=== PATIENT | female | born 1995 | race Caucasian/White ===

== ENCOUNTER 2019-09-27 18:53 | Emergency (ER) | payer OTHER ==
[2019-09-27] MEDS ORDERED: SODIUM CHLORIDE 0.9% 1,000 ML IV STA (19:12)
[2019-09-27] MEDS ORDERED: ONDANSETRON 4 MG/2 ML VIAL IVP STA (19:12)
--- NOTE | 2019-09-27 19:25 | ED Physician Documentation ---
PD HPI ABD PAIN - Stated complaint Stated Complaint: N/V, TIMMONS - Chief complaint Chief Complaint: Abd Pain - History obtained from History obtained from: Patient (G1 at 12 weeks gestation and has had persistent problems with cramping and vomiting throughout this . She was prescribed doxylamine Which was quite helpful, but the efficacy waned. Now feeling weak and dizzy. Pain is not severe. No bleeding. No fluid loss.) Review of Systems Ten Systems: 10 systems reviewed and negative Constitutional: reports: Fatigue. denies: Fever, Chills Cardiac: denies: Chest pain / pressure, Palpitations Respiratory: denies: Dyspnea, Cough PD PAST MEDICAL HISTORY - Past Medical History Past Medical History: Yes Endocrine/Autoimmune: Other Other Past Medical History: Hypoglycemia - Past Surgical History Past Surgical History: No - Present Medications Home Medications: Ambulatory Orders Medication Instructions Recorded Confirmed Doxylamine Succinate [Unisom] 25 mg PO Q8HR PRN 09/27/19 09/27/19 Metoclopramide [Reglan] 10 mg PO Q6H PRN #20 tablet 09/27/19 - Allergies Allergies/Adverse Reactions: Allergies Allergy/AdvReac Type Severity Reaction Status Date / Time latex Allergy Unknown Verified 09/27/19 19:06 naproxen Allergy Unknown Verified 09/27/19 19:06 Sulfa (Sulfonamide Allergy Unknown Verified 09/27/19 19:06 Antibiotics) - Social History Does the pt smoke?: No Smoking Status: Never smoker Does the pt drink ETOH?: No Does the pt have substance abuse?: No - Immunizations Immunizations are current?: Yes - POLST Patient has POLST: No PD ED PE NORMAL - Vitals Vital signs reviewed: Yes - General General: Alert and oriented X 3, No acute distress - Abdomen Abdomen: Normal bowel sounds, Soft, Non tender - Female Female : Other (Bedside ultrasound demonstrates single live intrauterine with a heart rate of 158.) - Neuro Neuro: Alert and oriented X 3, Normal speech Results - Vitals Vitals: Vital Signs - 24 hr 09/27/19 09/27/19 09/27/19 19:06 19:53 20:47 Temperature 36.9 C Heart Rate 92 85 84 Respiratory 16 16 18 Rate Blood Pressure 111/58 L 93/60 100/59 L O2 Saturation 99 100 100 Oxygen O2 Source Room air - Labs Labs: Laboratory Tests 09/27/19 09/27/19 19:32 20:10 Sodium 135 Potassium 3.8 Chloride 101 Carbon Dioxide 23 Anion Gap 11.0 BUN 9 Creatinine 0.4 Estimated GFR (MDRD) 198 Glucose 89 Calcium 9.5 Total Bilirubin 0.6 AST 24 ALT 21 Alkaline Phosphatase 59 Total Protein 7.8 Albumin 3.9 Globulin 3.9 Albumin/Globulin Ratio 1.0 Lipase 32 Urine Color YELLOW Urine Clarity CLEAR Urine pH 5.5 Ur Specific [place] >=1.030 H Urine Protein NEGATIVE Urine Glucose (UA) NEGATIVE Urine Ketones >=80 H Urine Occult Blood NEGATIVE Urine Nitrite NEGATIVE Urine Bilirubin NEGATIVE Urine Urobilinogen 0.2 (NORMAL) Ur Leukocyte Esterase NEGATIVE Ur Microscopic Review NOT INDICATED Urine Culture Comments NOT INDICATED PD MEDICAL DECISION MAKING - ED course ED course: 24-year-old G1 with hyperemesis gravidarum. She has ketonuria but her blood work is normal. Passed a p.o. challenge after IV fluids and IV Zofran. Departure - Departure Disposition: 01 Home, Self Care Clinical Impression: Hyperemesis gravidarum Condition: Good Record reviewed to determine appropriate education?: Yes Instructions: ED Preg Morning Sickness Prescriptions: Metoclopramide [Reglan] 10 mg PO Q6H PRN #20 tablet PRN Reason: nausea or headache Comments: Call your doctor to arrange a follow-up appointment, make the next available appointment. In the interim, return anytime if worse or if new symptoms develop.
[2019-09-27 19:51] LABS: ALBUMIN 3.9 g/dL (3.2-5.5); BILIRUBIN,TOTAL 0.6 mg/dL (0.2-1.0); CALCIUM 9.5 mg/dL (8.5-10.3); CREATININE 0.4 mg/dL (0.4-1.0); TOTAL PROTEIN 7.8 g/dL (6.7-8.2)
[2019-09-27 20:17] LABS: BILIRUBIN,URINE NEGATIVE (NEGATIVE); CLARITY,URINE CLEAR (CLEAR); GLUCOSE, URINE (UA) NEGATIVE (NEGATIVE); KETONES,URINE (UA) >=80 mg/dL (NEGATIVE); LEUKOCYTE ESTERASE, URINE NEGATIVE (NEGATIVE); NITRITE,URINE NEGATIVE (NEGATIVE); OCCULT BLOOD,URINE NEGATIVE (NEGATIVE); PH,URINE 5.5 PH (5.0-7.5); PROTEIN,URINE NEGATIVE (NEGATIVE); UROBILINOGEN,URINE 0.2 (NORMAL) E.U./dL (NORMAL)
[2019-09-27 20:48] VITALS: BP 100/59
== END 2019-09-27 21:15 | disposition home or self-care (01) ==
LOC: ED 18:53
DX: O21.0 Mild hyperemesis gravidarum (principal); Z3A.12 12 weeks gestation of pregnancy; R82.4 Acetonuria
CPT/HCPCS: 36415; 80053; 81001; 81003; 83690; 87086; 96361; 96374; 99283

== ENCOUNTER 2019-10-23 18:52 | Emergency (ER) | payer OTHER ==
[2019-10-23] MEDS ORDERED: SODIUM CHLORIDE 0.9% 1,000 ML IV STA (19:15)
[2019-10-23] MEDS ORDERED: ONDANSETRON 4 MG/2 ML VIAL IVP STA (19:15)
--- NOTE | 2019-10-23 19:16 | ED Physician Documentation ---
PD HPI ABD PAIN - Stated complaint Stated Complaint: N/V, R SIDE PX - Chief complaint Chief Complaint: Abd Pain - History obtained from History obtained from: Patient - Additional information Additional information: She is a G1 at approximately 18 weeks who developed right-sided nonmigratory abdominal pain associated with nausea and vomiting and a slight amount of hematemesis. She has had a lot of issues with vomiting in this and tried Zofran and Reglan at home without relief. No cramping or bleeding or fluid loss. Review of Systems Ten Systems: 10 systems reviewed and negative Constitutional: denies: Fever, Chills Throat: denies: Dental pain / toothache, Sore throat Cardiac: denies: Chest pain / pressure, Palpitations Respiratory: denies: Dyspnea PD PAST MEDICAL HISTORY - Past Medical History Endocrine/Autoimmune: Other - Past Surgical History Past Surgical History: No - Present Medications Home Medications: Ambulatory Orders Medication Instructions Recorded Confirmed Doxylamine Succinate [Unisom] 25 mg PO Q8HR PRN 09/27/19 09/27/19 Metoclopramide [Reglan] 10 mg PO Q6H PRN #20 tablet 09/27/19 Ondansetron Odt [Zofran] 4 mg TL Q6H PRN #10 tablet 10/23/19 - Allergies Allergies/Adverse Reactions: Allergies Allergy/AdvReac Type Severity Reaction Status Date / Time latex Allergy Unknown Verified 10/23/19 18:56 naproxen Allergy Unknown Verified 10/23/19 18:56 Sulfa (Sulfonamide Allergy Unknown Verified 10/23/19 18:56 Antibiotics) - Social History Does the pt smoke?: No Smoking Status: Never smoker Does the pt drink ETOH?: No Does the pt have substance abuse?: No - Immunizations Immunizations are current?: Yes - POLST Patient has POLST: No PD ED PE NORMAL - Vitals Vital signs reviewed: Yes - General General: Alert and oriented X 3, No acute distress - HEENT HEENT: PERRL, EOMI - Neck Neck: Supple, no meningeal sign, No bony TTP - Cardiac Cardiac: RRR, No murmur - Respiratory Respiratory: No respiratory distress, Clear bilaterally - Abdomen Abdomen: Non tender, Other (I am unable to elicit any specific right-sided abdominal tenderness on initial evaluation. Bedside ultrasound demonstrates single live intrauterine with heart rate of 160.) - Back Back: No CVA TTP, No spinal TTP - Derm Derm: Normal color, Warm and dry - Extremities Extremities: No edema, No calf tenderness / cord - Neuro Neuro: Alert and oriented X 3, Normal speech Results - Vitals Vitals: Vital Signs - 24 hr 10/23/19 18:56 Temperature 36.5 C Heart Rate 90 Respiratory 14 Rate Blood Pressure 124/70 O2 Saturation 100 Oxygen O2 Source Room air - Labs Labs: Laboratory Tests 10/23/19 10/23/19 10/23/19 19:30 19:30 20:09 WBC 16.5 H RBC 4.07 L Hgb 12.6 Hct 35.8 L MCV 88.0 MCH 31.0 MCHC 35.2 RDW 13.2 Plt Count 288 MPV 9.1 Neut # (Auto) 14.7 H Lymph # (Auto) 1.2 L [place] # (Auto) 0.5 Eos # (Auto) 0.0 Baso # (Auto) 0.1 Absolute Nucleated RBC 0.00 Nucleated RBC % 0.0 Sodium 137 Potassium 3.5 Chloride 101 Carbon Dioxide 22 Anion Gap 14.0 H BUN 7 Creatinine 0.4 Estimated GFR (MDRD) 198 Glucose 89 Calcium 9.5 Total Bilirubin 0.7 AST 19 ALT 15 Alkaline Phosphatase 74 Total Protein 7.8 Albumin 4.1 Globulin 3.7 Albumin/Globulin Ratio 1.1 Lipase 30 Urine Color YELLOW Urine Clarity CLEAR Urine pH 6.0 Ur Specific [place] >=1.030 H Urine Protein NEGATIVE Urine Glucose (UA) NEGATIVE Urine Ketones >=80 H Urine Occult Blood NEGATIVE Urine Nitrite NEGATIVE Urine Bilirubin NEGATIVE Urine Urobilinogen 0.2 (NORMAL) Ur Leukocyte Esterase NEGATIVE Ur Microscopic Review NOT INDICATED Urine Culture Comments NOT INDICATED - Rads (name of study) R abd sono Radiology: EMP read contemporaneously (Nonmobile cholelithiasis versus polyps, mild hydronephrosis and prominence of the right renal pelvis, normal appendix.) PD MEDICAL DECISION MAKING - ED course ED course: 24-year-old woman with right-sided abdominal pain, very benign examination. An ultrasound was done and the limousine driver was confident she identified the the appendix and it was normal in caliber. Pain was migratory in the emergency department moving lower, but repeat examinations including just prior to discharge all remained completely nontender. Note made of the ultrasound read, but no blood in the urine to necessitate further work-up for kidney stone nor intractable pain. No evidence of pyuria. She passed an oral challenge after IV meds here. She has Zofran at home and it does work except the specific hose finisher she has makes her more nauseous because it is mint flavored and during her she has an aversion to mint's we will try a different prescription which she is advised to follow-up with a different pharmacy for a different hose finisher. Departure - Departure Disposition: Home, Self Care Clinical Impression: Hyperemesis gravidarum Abdominal pain Qualifiers: Abdominal location: right lower quadrant Qualified Code(s): R10.31 - Right lower quadrant pain Qualifiers: Weeks of gestation: 18 weeks Qualified Code(s): Z3A.18 - 18 weeks gestation of Condition: Good Record reviewed to determine appropriate education?: Yes Instructions: ED Abdominal Pain Appendx Poss Prescriptions: Ondansetron Odt [Zofran] 4 mg TL Q6H PRN #10 tablet PRN Reason: Nausea / Vomiting Comments: Return tomorrow morning if you have persistent pain. Sooner if you have fevers or other new concerns. Follow-up with your OB as well, next available appointment.
[2019-10-23 19:45] LABS: BASOPHILS # (AUTO) 0.1 10^3/uL (0.0-0.1); BASOPHILS % (AUTO) 0.3 %; EOSINOPHILS % (AUTO) 0.1 %; HGB - HEMOGLOBIN 12.6 g/dL (12.0-16.0); LYMPHOCYTES # (AUTO) 1.2 10^3/uL (1.5-3.5); LYMPHOCYTES % (AUTO) 7.2 %; MEAN CORPUSCULAR HGB CONC 35.2 g/dL (32.0-36.0); MEAN PLATELET VOLUME 9.1 fL (7.9-10.8); MONOCYTES # (AUTO) 0.5 10^3/uL (0.0-1.0); MONOCYTES % (AUTO) 2.9 %; NEUTROPHILS # (AUTO) 14.7 10^3/uL (1.5-6.6); NEUTROPHILS % (AUTO) 89.1 %; PLT - PLATELET COUNT 288 10^3/uL (130-450); RED BLOOD COUNT 4.07 10^6/uL (4.20-5.40); RED CELL DISTRIBUTION WIDTH 13.2 % (12.0-15.0); WHITE BLOOD COUNT 16.5 x10^3/uL (4.8-10.8)
[2019-10-23 19:58] LABS: ALBUMIN 4.1 g/dL (3.2-5.5); ALBUMIN/GLOBULIN RATIO 1.1 (1.0-2.2); BILIRUBIN,TOTAL 0.7 mg/dL (0.2-1.0); CALCIUM 9.5 mg/dL (8.5-10.3); CREATININE 0.4 mg/dL (0.4-1.0); TOTAL PROTEIN 7.8 g/dL (6.7-8.2)
[2019-10-23] MEDS ORDERED: ACETAMINOPHEN 325 MG TABLET PO STA (20:33)
[2019-10-23] MEDS ORDERED: METOCLOPRAMIDE 10 MG/2 ML VIAL IVP STA (20:56)
--- NOTE | 2019-10-23 21:05 | Ultrasound Report ---
PROCEDURE: Abdomen Limited INDICATIONS: Right mid abdominal pain during , evaluat TECHNIQUE: Real-time focused scanning was performed of the abdomen, with image documentation. COMPARISON: None FINDINGS: 1. Liver measures 15 cm and is within normal limits in appearance. Nonmobile foci of increased echoge nicity is present within the gallbladder the largest measuring 5 mm. Wall thickness is within normal limits measuring 1.2 mm. Common bile duct measures 3 mm. Visualized portion of the pancreas are unrem arkable. Right kidney measures 11.4 cm. Mild right hydronephrosis and prominent proximal renal pelvis is present. Aorta and IVC are within normal limits. The appendix is visualized measuring 5.6 x 4.0 x 4.0 mm. Wall thickness measures 6 mm. There is no hy peremia or echogenic fat. It is compressible. No visualized appendicolith. No associated complex or f ree fluid or adenopathy. IMPRESSION: 1. Nonmobile cholelithiasis versus polyps. 2. Mild hydronephrosis and prominence of the right renal pelvis. Source of obstruction is not clearly identified. 3. Appendix is unremarkable. Reviewed by: Blaire Bañuelos MD on 10/23/2019 9:04 PM PDT Approved by: Blaire Bañuelos MD on 10/23/2019 9:04 PM PDT Station ID: [id number]
[2019-10-23 21:10] LABS: BILIRUBIN,URINE NEGATIVE (NEGATIVE); GLUCOSE, URINE (UA) NEGATIVE (NEGATIVE); KETONES,URINE (UA) >=80 mg/dL (NEGATIVE); LEUKOCYTE ESTERASE, URINE NEGATIVE (NEGATIVE); NITRITE,URINE NEGATIVE (NEGATIVE); OCCULT BLOOD,URINE NEGATIVE (NEGATIVE); PROTEIN,URINE NEGATIVE (NEGATIVE); UROBILINOGEN,URINE 0.2 (NORMAL) E.U./dL (NORMAL)
[2019-10-23 21:11] LABS: CLARITY,URINE CLEAR (CLEAR)
[2019-10-23 21:29] VITALS: BP 101/63
== END 2019-10-23 21:30 | disposition home or self-care (01) ==
LOC: ED 18:52
DX: O21.0 Mild hyperemesis gravidarum (principal); O99.89 Other specified diseases and conditions complicating pregnancy, childbirth and the puerperium; R10.31 Right lower quadrant pain; Z3A.18 18 weeks gestation of pregnancy
CPT/HCPCS: 36415; 76705; 80053; 81003; 83690; 85025; 96361; 96374; 96375; 99284; A9270; J2765; 81001; 87086

== ENCOUNTER 2021-06-04 11:47 | Outpatient (CLI) | payer OTHER | END 2021-06-04 23:59 | disposition home or self-care (01) | LOC: LAB.N 11:47 | PROVIDERS: ATTEND Family Medicine | DX: U07.1 COVID-19 (principal) ==

== ENCOUNTER 2022-12-28 15:46 | Emergency (ER) | payer OTHER ==
[2022-12-28 16:01] VITALS: BP 114/75; O2SAT 98
--- NOTE | 2022-12-28 16:50 | XRAY Report ---
PROCEDURE: Wrist 4 View LT INDICATIONS: Trauma TECHNIQUE: 4 views of the wrist were acquired. COMPARISON: None. FINDINGS: Bones: No fractures or dislocations. No suspicious bony lesions. Soft tissues: No suspicious soft tissue calcifications or masses. IMPRESSION: No acute bony abnormality. Reviewed by: Adam Zapata MD on 12/28/2022 4:48 PM PDT Approved by: Adam Zapata MD on 12/28/2022 4:48 PM PDT Station ID: [id number]
--- NOTE | 2022-12-28 16:53 | ED Physician Documentation ---
PD HPI UPPER EXT INJURY - Stated complaint Stated Complaint: L WRIST INJ - Chief complaint Chief Complaint: Trauma Ext - History obtained from History obtained from: Patient - Additonal information Additional information: [id number] female presents for left wrist pain. Patient was catching her child when she injured her wrist. It is still painful several days later and so she is here today to "ensure its not broken". No medications taken at home for symptoms. No numbness or weakness. Review of Systems Constitutional: denies: Fever, Chills GI: denies: Abdominal Pain, Nausea, Vomiting : denies: Dysuria, Frequency, Hesitancy Musculoskeletal: reports: Joint pain. denies: Neck pain, Back pain, Extremity pain, Extremity swelling, Joint swelling PD PAST MEDICAL HISTORY - Past Medical History Endocrine/Autoimmune: Other - Past Surgical History Past Surgical History: No - Present Medications Home Medications: Ambulatory Orders Medication Instructions Recorded Confirmed Doxylamine Succinate [Unisom] 25 mg PO Q8HR PRN 09/27/19 09/27/19 Metoclopramide [Reglan] 10 mg PO Q6H PRN #20 tablet 09/27/19 Ondansetron Odt [Zofran] 4 mg TL Q6H PRN #10 tablet 10/23/19 - Allergies Allergies/Adverse Reactions: Allergies Allergy/AdvReac Type Severity Reaction Status Date / Time latex Allergy Unknown Verified 12/28/22 15:54 naproxen Allergy Unknown Verified 12/28/22 15:54 Sulfa (Sulfonamide Allergy Unknown Verified 12/28/22 15:54 Antibiotics) - Social History Does the pt smoke?: No Smoking Status: Never smoker Does the pt drink ETOH?: No Does the pt have substance abuse?: No - Immunizations Immunizations are current?: Yes - POLST Patient has POLST: No PD ED PE NORMAL - Vitals Vital signs reviewed: Yes - General General: Alert and oriented X 3, No acute distress, Well developed/nourished - HEENT HEENT: Atraumatic - Neck Neck: Supple, no meningeal sign - Cardiac Cardiac: RRR, No murmur, Strong equal pulses - Abdomen Abdomen: Soft, Non tender, Non distended - Back Back: No CVA TTP, No spinal TTP - Derm Derm: Normal color, Warm and dry, No rash - Extremities Extremities: No deformity, No tenderness to palpate, Normal ROM s pain, No edema - Neuro Neuro: Alert and oriented X 3, extension service advisor 2-12 intact, No motor deficit, Normal speech - Psych Psych: Normal mood, Normal affect Results - Vitals Vitals: Vital Signs - 24 hr 12/28/22 15:54 Temperature 36.5 C Heart Rate 86 Respiratory 16 Rate Blood Pressure 114/75 O2 Saturation 98 Oxygen O2 Source Room air PD Medical Decision Making - ED course Complexity details: reviewed results, re-evaluated patient, considered differential, d/w patient ED course: Wrist pain. X-rays negative. RICE instructions counseled at bedside. Placed in soft Velcro splint for comfort. Departure - Departure Disposition: 01 Home, Self Care Clinical Impression: Injury of wrist Qualifiers: Encounter type: initial encounter Laterality: left Qualified Code(s): S69.92XA - Unspecified injury of left wrist, hand and finger(s), initial encounter Condition: Stable Instructions: ED Sprain Wrist Forms: PCP List Discharge Date/Time: 12/28/22 17:10
== END 2022-12-28 17:10 | disposition home or self-care (01) ==
LOC: ED 15:46
DX: S69.92XA Unspecified injury of left wrist, hand and finger(s), initial encounter (principal); X58.XXXA Exposure to other specified factors, initial encounter
CPT/HCPCS: 99282; 99283